=== PATIENT | male | born 1960 | race Caucasian/White ===

== ENCOUNTER 2018-11-05 18:34 | Emergency (ER) | payer SELFPAY ==
[~2018-11-05] VITALS: Ht 175.3 cm; Wt 92.0 kg
[2018-11-05] MEDS ORDERED: TETANUS, DIPHTHERIA, PERTUSSIS VAC/PF 0.5ML (>7YR OLD) IM ONE (19:30)
[2018-11-05] MEDS ORDERED: OLANZAPINE 10 MG/VIAL IM ONE (19:30)
[2018-11-05] MEDS ORDERED: LORAZEPAM 2MG/ML CPJ IM ONE ×2 (19:30→21:00)
[2018-11-05] MEDS ORDERED: LIDOCAINE 1%/EPI 1:100,000 10 ML VIAL IJ ONE (19:30)
[2018-11-05] MEDS ORDERED: BACITRACIN ZINC OINT UDPKT TOP ONE (19:30)
[2018-11-05] MEDS ORDERED: BACITRACIN 15GM TUBE TOP NR (19:45)
[2018-11-05] MEDS ORDERED: OLANZAPINE 10 MG/VIAL IM NR (19:45)
[2018-11-05] MEDS ORDERED: LIDOCAINE HCL/EPINEPHRINE 1%-EPI 1:100,000 20 ML VIAL INFIL NR (20:15)
[2018-11-05] MEDS ORDERED: LORAZEPAM 2MG/ML CPJ IM NR (21:45)
[2018-11-06 01:28] VITALS: BP 132/80
== END 2018-11-05 23:50 | disposition home or self-care (01) ==
LOC: ER 18:34
DX: S01.81XA Laceration without foreign body of other part of head, initial encounter (principal); Z02.89 Encounter for other administrative examinations; Y04.0XXA Assault by unarmed brawl or fight, initial encounter; Y93.89 Activity, other specified; Y92.512 Supermarket, store or market as the place of occurrence of the external cause; Y99.8 Other external cause status
CPT/HCPCS: 12011; 70486; 90715; 96372; 99284; J2060; J3490; Z7610

== ENCOUNTER 2019-05-06 12:28 | Inpatient (IN) | payer MEDICAID, OTHER ==
[~2019-05-06] VITALS: Ht 167.6 cm; Wt 82.1 kg
[2019-05-06] MEDS ORDERED: IBUP-2030 PO (12:51)
[2019-05-06] MEDS ORDERED: MORPHINE SULFATE 4 MG/ML CPJ (NOT FOR IM USE) IV STA (16:19)
[2019-05-06] MEDS ORDERED: KETOROLAC 30MG/ML VIAL IV STA (16:19)
[2019-05-06] MEDS ORDERED: SODIUM CHLORIDE 0.9% 1000ML BAG (SEPSIS BOLUS) IV ONE (16:30)
[2019-05-06] MEDS ORDERED: PIPERACILLIN/TAZ 3.375G PREMIX 50 ML IV ONE (16:30)
[2019-05-06] MEDS ORDERED: AZITHROMYCIN 500 MG in DEXT 5% WATER 250 ML IV ONE (16:30)
[2019-05-06 17:28] LABS: HEMATOCRIT. 41.5 % (42.0-52.0); MEAN CORPUSCULAR HEMOGLOBIN 31.2 pg (28.0-32.0); MEAN PLATELET VOLUME 7.5 fl (7.4-10.4); PLATELET 412 x1000/uL (130-400); RED BLOOD CELL COUNT 4.51 mill/uL (4.7-6.1); RED CELL DISTRIBUTION WIDTH 13.4 % (11.6-14.6)
[2019-05-06 17:32] LABS: CLARITY URINE CLEAR (CLEAR); COLOR URINE YELLOW (YELLOW); KETONES URINE NEGATIVE (NEGATIVE); LEUKOCYTE ESTERASE URINE NEGATIVE (NEGATIVE); NITRITE URINE NEGATIVE (NEGATIVE); OCCULT BLOOD URINE NEGATIVE (NEGATIVE); PH URINE 5.5 (4.5-8.0); PROTEIN URINE TRACE (NEGATIVE); SPECIFIC GRAVITY URINE 1.038 (1.005-1.030); UROBILINOGEN URINE 0.2 E.U./dL (0.2-1.0)
[2019-05-06 17:34] LABS: CHLORIDE 92 mEq/L (98-107)
[2019-05-06 17:35] LABS: PROTHROMBIN TIME 10.1 sec (9.6-11.0)
[2019-05-06 17:48] LABS: PLATELET ESTIMATE INCREASED
[2019-05-06] MEDS ORDERED: INSULIN LISPRO 100 UNITS/ML SUBCUT ONE (19:00)
[2019-05-06] MEDS ORDERED: MAGNESIUM/ALUMINUM HYDROXIDE/SIMETHICONE 30ML UDC PO PRN (19:30)
[2019-05-06] MEDS ORDERED: ONDANSETRON HCL 4MG/2ML INJ IV PRN (19:30)
[2019-05-06] MEDS ORDERED: CLONIDINE 0.1MG TABLET PO PRN (19:30)
[2019-05-06] MEDS ORDERED: GUAIFENESIN 200MG/10ML SUGAR FREE UDC PO PRN (19:30)
[2019-05-06] MEDS ORDERED: IPRATROPIUM/ALBUTEROL 0.5-3(2.5)MG/3ML NEB HHN PRN (19:30)
[2019-05-06] MEDS ORDERED: NA PHOS,M-B/NA PHOS,DI-BA ENEMA 118ML PR PRN (19:30)
[2019-05-06] MEDS ORDERED: PIPERACILLIN/TAZ 3.375G PREMIX 50 ML IV SCH (19:30)
[2019-05-06] MEDS ORDERED: DOCUSATE SODIUM 100MG CAPSULE PO PRN (19:30)
[2019-05-06] MEDS: MORPHINE SULFATE 2 MG/ML CPJ (NOT FOR IM USE) IV PRN ×3 (20:30→23:47)
[2019-05-06] MEDS: HYDROCODONE/ACETAMINOPHEN 10/325MG TABLET PO PRN ×2 (20:53→23:47)
[2019-05-06] MEDS ORDERED: VANCOMYCIN 1250MG in DEXTROSE 5% WATER 250ML IV NR (22:00)
[2019-05-06] MEDS ORDERED: DEXTROSE 50% WATER 50ML SYRINGE IV PRN (23:15)
[2019-05-06] MEDS ORDERED: INSULIN LISPRO 100 UNITS/ML SUBCUT NR (23:30)
[2019-05-06] MEDS: LORAZEPAM 2MG/ML CPJ IV PRN (23:50)
[2019-05-07] MEDS ORDERED: INSULIN LISPRO 100 UNITS/ML SUBCUT NR (01:15)
[2019-05-07] MEDS: MORPHINE SULFATE 2 MG/ML CPJ (NOT FOR IM USE) IV PRN (04:37)
[2019-05-07 05:43] LABS: BASOPHILS % 0.3 % (0.0-2.0); EOSINOPHILS % 1.5 % (0.0-5.0); HEMATOCRIT. 33.8 % (42.0-52.0); HEMOGLOBIN. 11.6 g/dL (14.0-18.0); LYMPHOCYTES % 7.5 % (20.0-50.0); MEAN CORPUSCULAR HEMOGLOBIN 31.4 pg (28.0-32.0); MEAN CORPUSCULAR VOLUME 91.7 fL (80.0-94.0); MEAN PLATELET VOLUME 7.3 fl (7.4-10.4); MONOCYTES % 8.8 % (2.0-8.0); NEUTROPHILS % 81.9 % (40.0-76.0); PLATELET 341 x1000/uL (130-400); RED BLOOD CELL COUNT 3.69 mill/uL (4.7-6.1); RED CELL DISTRIBUTION WIDTH 13.2 % (11.6-14.6)
[2019-05-07 05:58] LABS: CHLORIDE 98 mEq/L (98-107)
[2019-05-07 06:08] LABS: LDL CHOLESTEROL 55 mg/dL (5-100)
[2019-05-07 06:09] LABS: HDL CHOLESTEROL 31 mg/dL (40-59)
[2019-05-07 06:10] LABS: T4 FREE 1.35 ng/dL (0.76-1.46)
[2019-05-07] MEDS: HYDROCODONE/ACETAMINOPHEN 10/325MG TABLET PO PRN ×2 (08:17→21:04)
[2019-05-07] MEDS ORDERED: INSULIN LISPRO 100 UNITS/ML SUBCUT SCH (08:20)
[2019-05-07] MEDS ORDERED: BLOOD SUGAR DIAGNOSTIC STRIP TEST SCH (08:41)
[2019-05-07 10:00] VITALS: BP 139/86
[2019-05-07] MEDS ORDERED: DEXTROSE 50% WATER 50ML SYRINGE IV PRN (10:00)
[2019-05-07] MEDS: HYDROMORPHONE HCL/PF 2MG/ML CPJ IV PRN ×3 (10:33→18:06)
[2019-05-07 12:00] VITALS: BP 132/81
[2019-05-07] MEDS: BLOOD SUGAR DIAGNOSTIC STRIP TEST SCH ×3 (12:40→21:04)
[2019-05-07] MEDS: ENOXAPARIN 40MG/0.4ML SYR SUBCUT SCH (14:12)
[2019-05-07] MEDS: ASPIRIN 81MG EC TABLET PO SCH (14:12)
[2019-05-07] MEDS: LISINOPRIL 40MG TABLET PO SCH (14:12)
[2019-05-07] MEDS: PIPERACILLIN/TAZOBACTAM 3.375 G in DEXT 5% WATER 100 ML IV SCH ×2 (14:13→18:05)
[2019-05-07] MEDS: INSULIN LISPRO 100 UNITS/ML SUBCUT SCH ×3 (14:24→22:33)
[2019-05-07] MEDS: VANCOMYCIN 1 G PREMIX 200 ML IV SCH ×2 (15:30→21:03)
[2019-05-07 16:00] VITALS: BP 137/95
[2019-05-07] MEDS: METFORMIN HCL 500MG TABLET PO SCH (18:55)
[2019-05-07 20:00] VITALS: BP 101/66
[2019-05-07] MEDS: QUETIAPINE FUMARATE 50MG TABLET PO SCH (20:47)
[2019-05-07] MEDS: TRAZODONE HCL 50MG TABLET PO SCH (20:48)
[2019-05-07] MEDS: LORAZEPAM 2MG/ML CPJ IV PRN (20:48)
[2019-05-08] VITALS: BP 110/62
[2019-05-08] MEDS: HYDROMORPHONE HCL/PF 2MG/ML CPJ IV PRN ×5 (00:04→19:53)
[2019-05-08] MEDS: PIPERACILLIN/TAZOBACTAM 3.375 G in DEXT 5% WATER 100 ML IV SCH ×3 (02:12→17:40)
[2019-05-08 04:00] VITALS: BP 105/51
[2019-05-08] MEDS: HYDROCODONE/ACETAMINOPHEN 10/325MG TABLET PO PRN ×2 (04:19→12:47)
[2019-05-08] MEDS: VANCOMYCIN 1 G PREMIX 200 ML IV SCH ×3 (04:19→20:43)
[2019-05-08] MEDS: BLOOD SUGAR DIAGNOSTIC STRIP TEST SCH ×3 (07:42→17:40)
[2019-05-08 08:00] VITALS: BP 97/58
[2019-05-08] MEDS: LISINOPRIL 40MG TABLET PO SCH (09:00)
[2019-05-08] MEDS: METFORMIN HCL 500MG TABLET PO SCH ×2 (09:07→17:41)
[2019-05-08] MEDS: ASPIRIN 81MG EC TABLET PO SCH (09:07)
[2019-05-08] MEDS: ENOXAPARIN 40MG/0.4ML SYR SUBCUT SCH (09:07)
[2019-05-08] MEDS: INSULIN LISPRO 100 UNITS/ML SUBCUT SCH ×4 (09:14→21:14)
[2019-05-08 12:00] VITALS: BP 101/56
[2019-05-08 16:00] VITALS: BP 98/49
[2019-05-08 16:24] LABS: CHLORIDE 100 mEq/L (98-107)
[2019-05-08 16:37] LABS: VANCOMYCIN TROUGH < 0.8 ug/mL (5.0-10.0)
[2019-05-08 17:10] LABS: HEMATOCRIT. 36.1 % (42.0-52.0); HEMOGLOBIN. 12.2 g/dL (14.0-18.0); MEAN CORPUSCULAR HEMOGLOBIN 31.1 pg (28.0-32.0); MEAN PLATELET VOLUME 7.8 fl (7.4-10.4); PLATELET 424 x1000/uL (130-400); RED BLOOD CELL COUNT 3.93 mill/uL (4.7-6.1); RED CELL DISTRIBUTION WIDTH 13.3 % (11.6-14.6)
[2019-05-08 17:39] LABS: PLATELET ESTIMATE INCREASED
[2019-05-08] MEDS ORDERED: INSULIN LISPRO 100 UNITS/ML SUBCUT NR (18:30)
[2019-05-08 20:00] VITALS: BP 118/79
[2019-05-08] MEDS: TRAZODONE HCL 50MG TABLET PO SCH (20:42)
[2019-05-08] MEDS: QUETIAPINE FUMARATE 50MG TABLET PO SCH (20:42)
[2019-05-08] MEDS: LORAZEPAM 2MG/ML CPJ IV PRN (20:57)
[2019-05-09] VITALS: BP 90/43
[2019-05-09] MEDS: PIPERACILLIN/TAZOBACTAM 3.375 G in DEXT 5% WATER 100 ML IV SCH ×3 (02:32→17:33)
[2019-05-09] MEDS: LORAZEPAM 2MG/ML CPJ IV PRN ×4 (03:10→20:09)
[2019-05-09 04:00] VITALS: BP 92/46
[2019-05-09] MEDS: BLOOD SUGAR DIAGNOSTIC STRIP TEST SCH ×5 (05:19→20:33)
[2019-05-09 08:00] VITALS: BP 114/55
[2019-05-09] MEDS: ENOXAPARIN 40MG/0.4ML SYR SUBCUT SCH (08:39)
[2019-05-09] MEDS: METFORMIN HCL 500MG TABLET PO SCH ×2 (08:39→19:29)
[2019-05-09] MEDS: ASPIRIN 81MG EC TABLET PO SCH (08:39)
[2019-05-09] MEDS: INSULIN LISPRO 100 UNITS/ML SUBCUT SCH ×4 (08:40→20:25)
[2019-05-09] MEDS: HYDROMORPHONE HCL/PF 2MG/ML CPJ IV PRN ×4 (08:41→21:14)
[2019-05-09] MEDS: LISINOPRIL 40MG TABLET PO SCH (08:55)
[2019-05-09 12:00] VITALS: BP 116/58
[2019-05-09 14:33] VITALS: BP 114/72
[2019-05-09 20:00] VITALS: BP 119/81
[2019-05-09] MEDS: TRAZODONE HCL 50MG TABLET PO SCH (20:08)
[2019-05-09] MEDS: QUETIAPINE FUMARATE 50MG TABLET PO SCH (20:08)
[2019-05-09] MEDS: CLINDAMYCIN 600MG PREMIX 50 ML IV SCH (20:08)
[2019-05-10] VITALS: BP 122/81
[2019-05-10] MEDS: PIPERACILLIN/TAZOBACTAM 3.375 G in DEXT 5% WATER 100 ML IV SCH (03:08)
[2019-05-10] MEDS: HYDROMORPHONE HCL/PF 2MG/ML CPJ IV PRN ×5 (03:26→21:06)
[2019-05-10 04:00] VITALS: BP 116/55
[2019-05-10] MEDS: CLINDAMYCIN 600MG PREMIX 50 ML IV SCH ×3 (04:58→18:13)
[2019-05-10 06:52] LABS: BASOPHILS % 0.5 % (0.0-2.0); EOSINOPHILS % 2.6 % (0.0-5.0); HEMATOCRIT. 29.2 % (42.0-52.0); HEMOGLOBIN. 9.8 g/dL (14.0-18.0); LYMPHOCYTES % 10.3 % (20.0-50.0); MEAN CORPUSCULAR HEMOGLOBIN 30.8 pg (28.0-32.0); MEAN CORPUSCULAR VOLUME 91.4 fL (80.0-94.0); MEAN PLATELET VOLUME 7.7 fl (7.4-10.4); NEUTROPHILS % 78.6 % (40.0-76.0); PLATELET 406 x1000/uL (130-400); RED BLOOD CELL COUNT 3.19 mill/uL (4.7-6.1); RED CELL DISTRIBUTION WIDTH 13.2 % (11.6-14.6)
[2019-05-10] MEDS: BLOOD SUGAR DIAGNOSTIC STRIP TEST SCH ×4 (07:03→21:05)
[2019-05-10] MEDS: METFORMIN HCL 500MG TABLET PO SCH ×2 (08:27→17:15)
[2019-05-10 08:30] VITALS: BP 104/50
[2019-05-10] MEDS: LISINOPRIL 40MG TABLET PO SCH (08:30)
[2019-05-10] MEDS: ENOXAPARIN 40MG/0.4ML SYR SUBCUT SCH (08:31)
[2019-05-10] MEDS: LORAZEPAM 2MG/ML CPJ IV PRN ×3 (08:31→17:11)
[2019-05-10] MEDS: ASPIRIN 81MG EC TABLET PO SCH (08:31)
[2019-05-10] MEDS: INSULIN LISPRO 100 UNITS/ML SUBCUT SCH ×4 (08:33→21:00)
[2019-05-10] MEDS: PIPERACILLIN/TAZOBACTAM 2.25 G in DEXTROSE 5% WATER 50 ML IV SCH ×2 (11:20→21:04)
[2019-05-10 12:00] VITALS: BP 108/51
[2019-05-10 16:00] VITALS: BP 108/58
[2019-05-10 20:00] VITALS: BP 144/77
[2019-05-10] MEDS: TRAZODONE HCL 50MG TABLET PO SCH (21:04)
[2019-05-10] MEDS: QUETIAPINE FUMARATE 50MG TABLET PO SCH (21:05)
[2019-05-11] VITALS: BP 138/79
[2019-05-11] MEDS: CLINDAMYCIN 600MG PREMIX 50 ML IV SCH ×3 (03:12→19:37)
[2019-05-11 04:00] VITALS: BP 139/75
[2019-05-11] MEDS: PIPERACILLIN/TAZOBACTAM 2.25 G in DEXTROSE 5% WATER 50 ML IV SCH ×3 (04:08→20:54)
[2019-05-11 06:18] LABS: HEMATOCRIT. 29.2 % (42.0-52.0); HEMOGLOBIN. 9.9 g/dL (14.0-18.0); MEAN CORPUSCULAR VOLUME 91.2 fL (80.0-94.0); MEAN PLATELET VOLUME 7.4 fl (7.4-10.4); PLATELET 423 x1000/uL (130-400); RED CELL DISTRIBUTION WIDTH 13.4 % (11.6-14.6)
[2019-05-11] MEDS: BLOOD SUGAR DIAGNOSTIC STRIP TEST SCH ×4 (07:40→20:10)
[2019-05-11 08:00] VITALS: BP 132/73
[2019-05-11] MEDS: INSULIN LISPRO 100 UNITS/ML SUBCUT SCH ×4 (08:10→21:07)
[2019-05-11] MEDS: HYDROMORPHONE HCL/PF 2MG/ML CPJ IV PRN ×4 (08:13→21:45)
[2019-05-11] MEDS: SODIUM CHLORIDE 0.9% 1,000 ML IV SCH ×2 (08:44→19:37)
[2019-05-11] MEDS: ENOXAPARIN 30MG/0.3ML SYR SUBCUT SCH (09:00)
[2019-05-11] MEDS: ASPIRIN 81MG EC TABLET PO SCH (09:00)
[2019-05-11] MEDS: LORAZEPAM 2MG/ML CPJ IV PRN ×2 (10:49→21:30)
[2019-05-11 12:00] VITALS: BP 135/72
[2019-05-11] MEDS ORDERED: SODIUM BICARBONATE 4% (2.4MEQ) 5ML VIAL IV ONE (12:36)
[2019-05-11] MEDS ORDERED: LIDOCAINE HCL 1% 20ML VIAL (Pyxis) INJ ONE (12:36)
[2019-05-11 16:00] VITALS: BP 143/77
[2019-05-11 16:57] LABS: *AMPHETAMINES SCREEN URINE NEGATIVE (NEGATIVE); *BARBITURATES SCREEN URINE NEGATIVE (NEGATIVE); *BENZODIAZEPINES SCREEN URINE NEGATIVE (NEGATIVE); *COCAINE SCREEN URINE NEGATIVE (NEGATIVE); METHADONE URINE SCREEN NEGATIVE (NEGATIVE); OPIATES URINE SCREEN PRESUMTIVE POSITIVE (NEGATIVE); PHENCYCLIDINE URINE SCREEN NEGATIVE (NEGATIVE)
[2019-05-11 16:58] LABS: CANNABINOID URINE SCREEN NEGATIVE (NEGATIVE)
[2019-05-11 18:41] LABS: HEPATITIS B SURFACE ANTIGEN NEGATIVE
[2019-05-11 19:11] LABS: HEPATITIS A AB IGM NEGATIVE (NEGATIVE)
[2019-05-11] MEDS: QUETIAPINE FUMARATE 50MG TABLET PO SCH (20:54)
[2019-05-11] MEDS: TRAZODONE HCL 50MG TABLET PO SCH (20:55)
[2019-05-12] MEDS: SODIUM CHLORIDE 0.9% 1,000 ML IV SCH ×2 (03:05→22:51)
[2019-05-12] MEDS: CLINDAMYCIN 600MG PREMIX 50 ML IV SCH ×3 (03:05→18:43)
[2019-05-12] MEDS: HYDROMORPHONE HCL/PF 2MG/ML CPJ IV PRN ×4 (03:16→20:39)
[2019-05-12 04:00] VITALS: BP 144/82
[2019-05-12] MEDS: PIPERACILLIN/TAZOBACTAM 2.25 G in DEXTROSE 5% WATER 50 ML IV SCH ×3 (04:47→20:37)
[2019-05-12] MEDS: LORAZEPAM 2MG/ML CPJ IV PRN ×2 (04:53→13:09)
[2019-05-12] MEDS: DIPHENHYDRAMINE 50MG/ML VIAL IV PRN (06:23)
[2019-05-12] MEDS: BLOOD SUGAR DIAGNOSTIC STRIP TEST SCH ×4 (07:40→20:54)
[2019-05-12 07:52] LABS: PLATELET ESTIMATE SLIGHTL
[2019-05-12 08:00] VITALS: BP 139/76
[2019-05-12] MEDS: INSULIN LISPRO 100 UNITS/ML SUBCUT SCH ×4 (08:10→21:00)
[2019-05-12] MEDS: ASPIRIN 81MG EC TABLET PO SCH (09:00)
[2019-05-12] MEDS: ENOXAPARIN 30MG/0.3ML SYR SUBCUT SCH (09:00)
[2019-05-12] MEDS ORDERED: LIDOCAINE HCL 1% 20ML VIAL (Pyxis) INJ ONE (09:26)
[2019-05-12 12:00] VITALS: BP 138/78
[2019-05-12 12:39] LABS: PARTIAL THROMBOPLASTIN TIME 28.5 sec (23.4-31.0); PROTHROMBIN TIME 10.6 sec (9.6-11.0)
[2019-05-12 16:00] VITALS: BP 128/79
[2019-05-12 20:00] VITALS: BP 152/68
[2019-05-12] MEDS: QUETIAPINE FUMARATE 50MG TABLET PO SCH (20:37)
[2019-05-12] MEDS: TRAZODONE HCL 50MG TABLET PO SCH (20:37)
[2019-05-13 00:02] VITALS: BP_SYST 157; BP_DIAS 57; BP_DIAS 71
[2019-05-13] MEDS: LORAZEPAM 2MG/ML CPJ IV PRN ×3 (00:24→11:51)
[2019-05-13] MEDS: SODIUM CHLORIDE 0.9% 1,000 ML IV SCH ×3 (00:30→22:51)
[2019-05-13] MEDS: PIPERACILLIN/TAZOBACTAM 2.25 G in DEXTROSE 5% WATER 50 ML IV SCH ×3 (04:01→20:14)
[2019-05-13] MEDS: HYDROMORPHONE HCL/PF 2MG/ML CPJ IV PRN ×4 (04:02→20:16)
[2019-05-13] MEDS: CLINDAMYCIN 600MG PREMIX 50 ML IV SCH ×3 (04:08→17:59)
[2019-05-13] MEDS: BLOOD SUGAR DIAGNOSTIC STRIP TEST SCH ×4 (05:55→20:38)
[2019-05-13 08:00] VITALS: BP 134/70
[2019-05-13] MEDS: INSULIN LISPRO 100 UNITS/ML SUBCUT SCH ×4 (08:10→20:42)
[2019-05-13] MEDS: ASPIRIN 81MG EC TABLET PO SCH (09:00)
[2019-05-13] MEDS: ENOXAPARIN 30MG/0.3ML SYR SUBCUT SCH (09:00)
[2019-05-13 09:37] LABS: HEMATOCRIT. 30.2 % (42.0-52.0); HEMOGLOBIN. 10.3 g/dL (14.0-18.0); MEAN CORPUSCULAR HEMOGLOBIN 31.1 pg (28.0-32.0); MEAN CORPUSCULAR VOLUME 91.5 fL (80.0-94.0); MEAN PLATELET VOLUME 7.3 fl (7.4-10.4); PLATELET 526 x1000/uL (130-400); RED CELL DISTRIBUTION WIDTH 13.4 % (11.6-14.6)
[2019-05-13 12:00] VITALS: BP 128/69
[2019-05-13] MEDS ORDERED: SODIUM POLYSTYRENE SULFONATE 15 G/60 ML BOT PO NR (12:15)
[2019-05-13 13:51] LABS: PLATELET ESTIMATE INCREASED
[2019-05-13 16:00] VITALS: BP 165/87
[2019-05-13 20:00] VITALS: BP 135/60
[2019-05-13] MEDS: QUETIAPINE FUMARATE 50MG TABLET PO SCH (20:14)
[2019-05-13] MEDS: TRAZODONE HCL 50MG TABLET PO SCH (20:14)
[2019-05-14] MEDS: CLINDAMYCIN 600MG PREMIX 50 ML IV SCH ×3 (02:53→18:11)
[2019-05-14 04:00] VITALS: BP 158/84
[2019-05-14] MEDS: HYDROMORPHONE HCL/PF 2MG/ML CPJ IV PRN ×4 (05:03→22:36)
[2019-05-14] MEDS: BLOOD SUGAR DIAGNOSTIC STRIP TEST SCH ×4 (06:48→20:17)
[2019-05-14] MEDS: INSULIN LISPRO 100 UNITS/ML SUBCUT SCH ×4 (06:49→20:30)
[2019-05-14 06:57] LABS: HEMATOCRIT. 27.8 % (42.0-52.0); HEMOGLOBIN. 9.3 g/dL (14.0-18.0); MEAN CORPUSCULAR HEMOGLOBIN 30.6 pg (28.0-32.0); MEAN CORPUSCULAR VOLUME 91.2 fL (80.0-94.0); MEAN PLATELET VOLUME 7.4 fl (7.4-10.4); PLATELET 523 x1000/uL (130-400); RED BLOOD CELL COUNT 3.05 mill/uL (4.7-6.1); RED CELL DISTRIBUTION WIDTH 13.3 % (11.6-14.6)
[2019-05-14 07:02] LABS: PARTIAL THROMBOPLASTIN TIME 31.4 sec (23.4-31.0); PROTHROMBIN TIME 10.7 sec (9.6-11.0)
[2019-05-14 08:00] VITALS: BP 139/68
[2019-05-14] MEDS: ASPIRIN 81MG EC TABLET PO SCH (08:24)
[2019-05-14] MEDS: ENOXAPARIN 30MG/0.3ML SYR SUBCUT SCH (08:24)
[2019-05-14 12:00] VITALS: BP 125/60
[2019-05-14 13:51] LABS: PLATELET ESTIMATE INCREASED
[2019-05-14] MEDS: DIPHENHYDRAMINE 50MG/ML VIAL IV PRN ×2 (14:20→20:17)
[2019-05-14 16:00] VITALS: BP 164/82
[2019-05-14] MEDS: SODIUM CHLORIDE 0.9% 1,000 ML IV SCH (17:38)
[2019-05-14 20:00] VITALS: BP 122/86
[2019-05-14] MEDS: QUETIAPINE FUMARATE 50MG TABLET PO SCH (20:17)
[2019-05-14] MEDS: TRAZODONE HCL 50MG TABLET PO SCH (20:17)
[2019-05-15] VITALS: BP 120/81
[2019-05-15] MEDS: DIPHENHYDRAMINE 50MG/ML VIAL IV PRN (00:39)
[2019-05-15] MEDS: CLINDAMYCIN 600MG PREMIX 50 ML IV SCH ×2 (02:48→13:36)
[2019-05-15] MEDS: HYDROMORPHONE HCL/PF 2MG/ML CPJ IV PRN ×4 (03:30→13:55)
[2019-05-15 04:00] VITALS: BP 125/84
[2019-05-15 07:37] LABS: HEMOGLOBIN. 10.3 g/dL (14.0-18.0); MEAN CORPUSCULAR HEMOGLOBIN 31.4 pg (28.0-32.0); MEAN CORPUSCULAR VOLUME 91.9 fL (80.0-94.0); MEAN PLATELET VOLUME 7.2 fl (7.4-10.4); PLATELET 639 x1000/uL (130-400); RED BLOOD CELL COUNT 3.27 mill/uL (4.7-6.1); RED CELL DISTRIBUTION WIDTH 13.4 % (11.6-14.6)
[2019-05-15] MEDS: BLOOD SUGAR DIAGNOSTIC STRIP TEST SCH ×3 (07:40→21:00)
[2019-05-15 08:00] VITALS: BP 169/90
[2019-05-15] MEDS: INSULIN LISPRO 100 UNITS/ML SUBCUT SCH ×3 (08:10→21:00)
[2019-05-15] MEDS: ENOXAPARIN 30MG/0.3ML SYR SUBCUT SCH (09:00)
[2019-05-15] MEDS ORDERED: LORAZEPAM 1MG TABLET PO SCH (09:15)
[2019-05-15 10:11] LABS: PLATELET ESTIMATE INCREAS
[2019-05-15 15:09] LABS: ANTI-NUCLEAR ANTIBODIES DIRECT Negative (Negative)
[2019-05-15 16:00] VITALS: BP 160/91
[2019-05-15] MEDS: LORAZEPAM 2MG/ML CPJ IV PRN (16:10)
[2019-05-15 20:00] VITALS: BP 153/88
[2019-05-15] MEDS: TRAZODONE HCL 50MG TABLET PO SCH (20:22)
[2019-05-15] MEDS: QUETIAPINE FUMARATE 50MG TABLET PO SCH (20:22)
[2019-05-16] VITALS: BP 133/66
[2019-05-16] MEDS: LORAZEPAM 2MG/ML CPJ IV PRN ×2 (01:13→16:08)
[2019-05-16] MEDS: CLINDAMYCIN 600MG PREMIX 50 ML IV SCH ×3 (03:00→21:13)
[2019-05-16 04:00] VITALS: BP 136/70
[2019-05-16] MEDS: HYDROMORPHONE HCL/PF 2MG/ML CPJ IV PRN ×3 (06:22→21:11)
[2019-05-16 06:50] LABS: BASOPHILS % 0.9 % (0.0-2.0); EOSINOPHILS % 2.9 % (0.0-5.0); HEMATOCRIT. 29.5 % (42.0-52.0); HEMOGLOBIN. 9.9 g/dL (14.0-18.0); LYMPHOCYTES % 9.7 % (20.0-50.0); MEAN CORPUSCULAR HEMOGLOBIN 30.6 pg (28.0-32.0); MEAN PLATELET VOLUME 7.1 fl (7.4-10.4); MONOCYTES % 9.4 % (2.0-8.0); NEUTROPHILS % 77.1 % (40.0-76.0); PLATELET 689 x1000/uL (130-400); RED BLOOD CELL COUNT 3.24 mill/uL (4.7-6.1); RED CELL DISTRIBUTION WIDTH 13.8 % (11.6-14.6)
[2019-05-16] MEDS: BLOOD SUGAR DIAGNOSTIC STRIP TEST SCH ×3 (07:40→21:11)
[2019-05-16 08:00] VITALS: BP 157/80
[2019-05-16] MEDS: INSULIN LISPRO 100 UNITS/ML SUBCUT SCH ×3 (08:10→21:14)
[2019-05-16] MEDS: ENOXAPARIN 30MG/0.3ML SYR SUBCUT SCH (09:00)
[2019-05-16 09:30] LABS: CLARITY URINE CLEAR (CLEAR); COLOR URINE YELLOW (YELLOW); KETONES URINE NEGATIVE (NEGATIVE); LEUKOCYTE ESTERASE URINE NEGATIVE (NEGATIVE); NITRITE URINE NEGATIVE (NEGATIVE); OCCULT BLOOD URINE TRACE (NEGATIVE); PROTEIN URINE 1+ (NEGATIVE); SPECIFIC GRAVITY URINE 1.006 (1.005-1.030); UROBILINOGEN URINE 0.2 E.U./dL (0.2-1.0)
[2019-05-16 12:00] VITALS: BP 142/79
[2019-05-16 16:00] VITALS: BP 157/82
[2019-05-16] MEDS: TRAZODONE HCL 50MG TABLET PO SCH (21:12)
[2019-05-16] MEDS: QUETIAPINE FUMARATE 50MG TABLET PO SCH (21:12)
[2019-05-16] MEDS: DIPHENHYDRAMINE 50MG/ML VIAL IV PRN (21:12)
[2019-05-17] VITALS: BP 149/78
[2019-05-17 04:00] VITALS: BP 145/87
[2019-05-17] MEDS: LORAZEPAM 2MG/ML CPJ IV PRN (05:47)
[2019-05-17 06:15] LABS: EOSINOPHILS % 4.5 % (0.0-5.0); HEMATOCRIT. 29.6 % (42.0-52.0); LYMPHOCYTES % 14.4 % (20.0-50.0); MEAN CORPUSCULAR HEMOGLOBIN 30.9 pg (28.0-32.0); MEAN CORPUSCULAR VOLUME 91.2 fL (80.0-94.0); MEAN PLATELET VOLUME 7.1 fl (7.4-10.4); MONOCYTES % 9.1 % (2.0-8.0); PLATELET 689 x1000/uL (130-400); RED BLOOD CELL COUNT 3.25 mill/uL (4.7-6.1); RED CELL DISTRIBUTION WIDTH 13.7 % (11.6-14.6)
[2019-05-17] MEDS: BLOOD SUGAR DIAGNOSTIC STRIP TEST SCH ×4 (07:40→20:46)
[2019-05-17 08:00] VITALS: BP 128/83
[2019-05-17] MEDS: INSULIN LISPRO 100 UNITS/ML SUBCUT SCH ×4 (08:10→20:46)
[2019-05-17] MEDS: ENOXAPARIN 30MG/0.3ML SYR SUBCUT SCH (09:00)
[2019-05-17] MEDS: HYDROMORPHONE HCL/PF 2MG/ML CPJ IV PRN ×3 (11:38→21:47)
[2019-05-17 12:00] VITALS: BP 158/88
[2019-05-17] MEDS: DIPHENHYDRAMINE 50MG/ML VIAL IV PRN ×2 (16:12→20:46)
[2019-05-17 16:15] VITALS: BP 142/67
[2019-05-17] MEDS: TRAZODONE HCL 50MG TABLET PO SCH (20:46)
[2019-05-17] MEDS: QUETIAPINE FUMARATE 50MG TABLET PO SCH (20:46)
[2019-05-18] VITALS (23 sets, daily range): BP systolic 122–163; BP diastolic 62–89
[2019-05-18] MEDS: LORAZEPAM 2MG/ML CPJ IV PRN ×3 (00:44→22:08)
[2019-05-18 06:25] LABS: PARTIAL THROMBOPLASTIN TIME 30.1 sec (23.4-31.0); PROTHROMBIN TIME 10.7 sec (9.6-11.0)
[2019-05-18] MEDS: BLOOD SUGAR DIAGNOSTIC STRIP TEST SCH ×4 (06:25→21:00)
[2019-05-18] MEDS: INSULIN LISPRO 100 UNITS/ML SUBCUT SCH ×4 (08:08→21:00)
[2019-05-18] MEDS ORDERED: FENTANYL CITRATE/PF 50MCG/ML 2ML VIAL ONE (08:44)
[2019-05-18] MEDS ORDERED: LIDOCAINE HCL 1% 20ML VIAL (Pyxis) INJ ONE ×3 (08:44→08:47)
[2019-05-18] MEDS ORDERED: SODIUM BICARBONATE 4% (2.4MEQ) 5ML VIAL IV ONE ×3 (08:44→08:47)
[2019-05-18] MEDS: ENOXAPARIN 30MG/0.3ML SYR SUBCUT SCH (09:00)
[2019-05-18] MEDS ORDERED: CEFAZOLIN 1000MG PREMIX 50 ML IV ONE ×2 (09:43→10:45)
[2019-05-18] MEDS ORDERED: FENTANYL CITRATE/PF 50MCG/ML 2ML VIAL IV ONE (10:15)
[2019-05-18] MEDS: HYDROMORPHONE HCL/PF 2MG/ML CPJ IV PRN ×2 (10:58→17:07)
[2019-05-18 14:58] LABS: HEMATOCRIT 28.4 % (42.0-52.0); HEMOGLOBIN 9.8 g/dL (14.0-18.0)
[2019-05-18] MEDS: QUETIAPINE FUMARATE 50MG TABLET PO SCH (22:24)
[2019-05-18] MEDS: TRAZODONE HCL 50MG TABLET PO SCH (22:24)
[2019-05-19] VITALS: BP 146/77
[2019-05-19 04:00] VITALS: BP 138/59
[2019-05-19] MEDS: HYDROMORPHONE HCL/PF 2MG/ML CPJ IV PRN ×2 (05:14→11:04)
[2019-05-19] MEDS: ACETAMINOPHEN 325MG TABLET PO PRN ×3 (05:32→19:49)
[2019-05-19] MEDS: BLOOD SUGAR DIAGNOSTIC STRIP TEST SCH ×4 (07:08→20:13)
[2019-05-19] MEDS: DIPHENHYDRAMINE 50MG/ML VIAL IV PRN (07:29)
[2019-05-19 07:36] LABS: HEMATOCRIT. 28.5 % (42.0-52.0); HEMOGLOBIN. 9.5 g/dL (14.0-18.0); MEAN CORPUSCULAR VOLUME 90.1 fL (80.0-94.0); MEAN PLATELET VOLUME 7.4 fl (7.4-10.4); PLATELET 531 x1000/uL (130-400); RED BLOOD CELL COUNT 3.17 mill/uL (4.7-6.1); RED CELL DISTRIBUTION WIDTH 13.9 % (11.6-14.6)
[2019-05-19 08:00] VITALS: BP 132/64
[2019-05-19] MEDS: INSULIN LISPRO 100 UNITS/ML SUBCUT SCH ×4 (08:05→20:27)
[2019-05-19] MEDS: ENOXAPARIN 30MG/0.3ML SYR SUBCUT SCH (09:20)
[2019-05-19] MEDS ORDERED: DIPHENHYDRAMINE 12.5MG/5ML UDC PO SCH (11:45)
[2019-05-19 12:37] LABS: PLATELET ESTIMATE INCREASED
[2019-05-19 15:48] VITALS: BP 132/81
[2019-05-19 20:00] VITALS: BP 145/67
[2019-05-19] MEDS: METRONIDAZOLE 500 MG PREMIX 100 ML IV SCH (20:09)
[2019-05-19] MEDS: QUETIAPINE FUMARATE 50MG TABLET PO SCH (20:10)
[2019-05-19] MEDS: TRAZODONE HCL 50MG TABLET PO SCH (20:10)
[2019-05-19] MEDS ORDERED: LEVOFLOXACIN 500MG PREMIX 100 ML IV NR (21:00)
[2019-05-20] VITALS: BP 128/67
[2019-05-20] MEDS: HYDROMORPHONE HCL/PF 2MG/ML CPJ IV PRN ×4 (00:10→21:41)
[2019-05-20 04:00] VITALS: BP 130/69
[2019-05-20 06:11] LABS: HEMATOCRIT. 26.6 % (42.0-52.0); HEMOGLOBIN. 9.2 g/dL (14.0-18.0); MEAN CORPUSCULAR HEMOGLOBIN 30.9 pg (28.0-32.0); MEAN PLATELET VOLUME 7.4 fl (7.4-10.4); PLATELET 425 x1000/uL (130-400); RED BLOOD CELL COUNT 2.98 mill/uL (4.7-6.1)
[2019-05-20] MEDS: BLOOD SUGAR DIAGNOSTIC STRIP TEST SCH ×4 (06:41→21:40)
[2019-05-20] MEDS: ACETAMINOPHEN 325MG TABLET PO PRN ×2 (07:05→20:05)
[2019-05-20] MEDS: DIPHENHYDRAMINE 50MG/ML VIAL IV PRN ×2 (07:05→20:05)
[2019-05-20 08:00] VITALS: BP 141/78
[2019-05-20] MEDS: INSULIN LISPRO 100 UNITS/ML SUBCUT SCH ×4 (08:02→21:40)
[2019-05-20] MEDS: METRONIDAZOLE 500 MG PREMIX 100 ML IV SCH ×2 (08:03→19:49)
[2019-05-20] MEDS: ENOXAPARIN 30MG/0.3ML SYR SUBCUT SCH (08:03)
[2019-05-20 12:00] VITALS: BP 133/77
[2019-05-20 12:55] LABS: PLATELET ESTIMATE INCREASED
[2019-05-20 16:00] VITALS: BP 149/78
[2019-05-20 20:00] VITALS: BP 145/83
[2019-05-20] MEDS: TRAZODONE HCL 50MG TABLET PO SCH (20:05)
[2019-05-20] MEDS: QUETIAPINE FUMARATE 50MG TABLET PO SCH (20:05)
[2019-05-21] VITALS: BP 140/80
[2019-05-21] MEDS: HYDROMORPHONE HCL/PF 2MG/ML CPJ IV PRN ×3 (03:59→20:47)
[2019-05-21 04:00] VITALS: BP 148/82
[2019-05-21 06:20] LABS: BASOPHILS % 0.5 % (0.0-2.0); EOSINOPHILS % 7.7 % (0.0-5.0); HEMATOCRIT. 24.8 % (42.0-52.0); HEMOGLOBIN. 8.7 g/dL (14.0-18.0); LYMPHOCYTES % 7.8 % (20.0-50.0); MEAN CORPUSCULAR HEMOGLOBIN 31.5 pg (28.0-32.0); MEAN CORPUSCULAR VOLUME 89.7 fL (80.0-94.0); MONOCYTES % 10.5 % (2.0-8.0); NEUTROPHILS % 73.5 % (40.0-76.0); PLATELET 405 x1000/uL (130-400); RED BLOOD CELL COUNT 2.77 mill/uL (4.7-6.1); RED CELL DISTRIBUTION WIDTH 13.4 % (11.6-14.6)
[2019-05-21] MEDS: BLOOD SUGAR DIAGNOSTIC STRIP TEST SCH ×4 (06:28→20:31)
[2019-05-21 08:00] VITALS: BP 144/77
[2019-05-21] MEDS: INSULIN LISPRO 100 UNITS/ML SUBCUT SCH ×4 (08:10→20:50)
[2019-05-21] MEDS: METRONIDAZOLE 500 MG PREMIX 100 ML IV SCH ×2 (08:16→20:32)
[2019-05-21] MEDS: ACETAMINOPHEN 325MG TABLET PO PRN ×2 (08:16→17:47)
[2019-05-21] MEDS: DIPHENHYDRAMINE 50MG/ML VIAL IV PRN (08:16)
[2019-05-21] MEDS: ENOXAPARIN 30MG/0.3ML SYR SUBCUT SCH (08:17)
[2019-05-21] MEDS ORDERED: HEPARIN SODIUM 1,000 UNIT/1ML VIAL IV NR (11:15)
[2019-05-21 12:00] VITALS: BP 149/83
[2019-05-21] MEDS: LEVOFLOXACIN 250MG PREMIX 50 ML IV SCH (14:05)
[2019-05-21] MEDS: LORAZEPAM 2MG/ML CPJ IV PRN (15:16)
[2019-05-21 16:00] VITALS: BP 151/83
[2019-05-21] MEDS: PREDNISONE 20MG TABLET PO SCH (17:35)
[2019-05-21 20:00] VITALS: BP 151/79
[2019-05-21] MEDS: QUETIAPINE FUMARATE 50MG TABLET PO SCH (20:31)
[2019-05-21] MEDS: TRAZODONE HCL 50MG TABLET PO SCH (20:31)
[2019-05-22] VITALS: BP 114/65
[2019-05-22 04:00] VITALS: BP 134/74
[2019-05-22] MEDS: LORAZEPAM 2MG/ML CPJ IV PRN ×2 (04:44→16:11)
[2019-05-22 06:09] LABS: BASOPHILS % 0.8 % (0.0-2.0); EOSINOPHILS % 1.1 % (0.0-5.0); HEMATOCRIT. 27.2 % (42.0-52.0); HEMOGLOBIN. 9.5 g/dL (14.0-18.0); LYMPHOCYTES % 13.5 % (20.0-50.0); MEAN CORPUSCULAR HEMOGLOBIN 31.3 pg (28.0-32.0); MEAN CORPUSCULAR VOLUME 89.9 fL (80.0-94.0); MEAN PLATELET VOLUME 7.7 fl (7.4-10.4); MONOCYTES % 8.1 % (2.0-8.0); NEUTROPHILS % 76.5 % (40.0-76.0); PLATELET 453 x1000/uL (130-400); RED BLOOD CELL COUNT 3.02 mill/uL (4.7-6.1); RED CELL DISTRIBUTION WIDTH 13.3 % (11.6-14.6)
[2019-05-22] MEDS: BLOOD SUGAR DIAGNOSTIC STRIP TEST SCH ×4 (06:53→21:38)
[2019-05-22] MEDS: METRONIDAZOLE 500 MG PREMIX 100 ML IV SCH ×2 (09:04→21:56)
[2019-05-22] MEDS: ACETAMINOPHEN 325MG TABLET PO PRN ×2 (09:04→18:13)
[2019-05-22] MEDS: DIPHENHYDRAMINE 50MG/ML VIAL IV PRN ×2 (09:04→18:13)
[2019-05-22] MEDS: INSULIN LISPRO 100 UNITS/ML SUBCUT SCH ×4 (09:05→21:38)
[2019-05-22] MEDS: PREDNISONE 20MG TABLET PO SCH (09:06)
[2019-05-22] MEDS: ENOXAPARIN 30MG/0.3ML SYR SUBCUT SCH (09:07)
[2019-05-22] MEDS: HYDROMORPHONE HCL/PF 2MG/ML CPJ IV PRN ×2 (10:32→21:51)
[2019-05-22 12:00] VITALS: BP_SYST 114; BP_SYST 134; BP_DIAS 73; BP_DIAS 77
[2019-05-22 16:00] VITALS: BP 143/74
[2019-05-22 20:00] VITALS: BP 137/75
[2019-05-22] MEDS: TRAZODONE HCL 50MG TABLET PO SCH (20:17)
[2019-05-22] MEDS ORDERED: QUETIAPINE FUMARATE 50MG TABLET PO SCH (21:00)
[2019-05-23] VITALS: BP 124/70
[2019-05-23] MEDS: LORAZEPAM 2MG/ML CPJ IV PRN ×2 (01:39→08:14)
[2019-05-23 04:00] VITALS: BP 120/74
[2019-05-23] MEDS: HYDROMORPHONE HCL/PF 2MG/ML CPJ IV PRN (05:53)
[2019-05-23] MEDS: BLOOD SUGAR DIAGNOSTIC STRIP TEST SCH ×2 (07:20→12:20)
[2019-05-23 07:37] LABS: BASOPHILS % 0.9 % (0.0-2.0); EOSINOPHILS % 1.6 % (0.0-5.0); HEMOGLOBIN. 9.1 g/dL (14.0-18.0); LYMPHOCYTES % 10.9 % (20.0-50.0); MEAN CORPUSCULAR VOLUME 91.5 fL (80.0-94.0); MEAN PLATELET VOLUME 7.8 fl (7.4-10.4); MONOCYTES % 7.6 % (2.0-8.0); PLATELET 522 x1000/uL (130-400); RED BLOOD CELL COUNT 2.95 mill/uL (4.7-6.1); RED CELL DISTRIBUTION WIDTH 13.5 % (11.6-14.6)
[2019-05-23 08:00] VITALS: BP 139/74
[2019-05-23] MEDS: PREDNISONE 20MG TABLET PO SCH (08:13)
[2019-05-23] MEDS: ACETAMINOPHEN 325MG TABLET PO PRN (08:14)
[2019-05-23] MEDS: ENOXAPARIN 30MG/0.3ML SYR SUBCUT SCH (08:14)
[2019-05-23] MEDS: METRONIDAZOLE 500 MG PREMIX 100 ML IV SCH (08:15)
[2019-05-23] MEDS: INSULIN LISPRO 100 UNITS/ML SUBCUT SCH ×2 (08:28→14:07)
[2019-05-23] MEDS: LEVOFLOXACIN 250MG PREMIX 50 ML IV SCH (11:00)
[2019-05-23] MEDS: DIPHENHYDRAMINE 50MG/ML VIAL IV PRN (11:11)
[2019-05-23 12:00] VITALS: BP 143/82
[2019-05-23 12:26] VITALS: BP 143/83
[2019-05-23 16:00] VITALS: BP 131/76
[2019-05-23] MEDS ORDERED: LEVOFLOXACIN 250MG TABLET PO SCH (18:00)
[2019-05-23] MEDS ORDERED: METRONIDAZOLE 500MG TABLET PO SCH (21:00)
== END 2019-05-23 16:25 | disposition home or self-care (01) | DRG 383 ==
LOC: ER 12:45 → EDBEDREQ 16:35 → 7WST 19:18 → EDBEDREQTM 19:29 → EDBEDREQ 19:29 → ENRESERV 05-07 07:32 → 6EST 05-22 10:42
PROVIDERS: ADMIT Internal Medicine; ATTEND Internal Medicine
PROC: 0JBP0ZZ Excision of Left Lower Leg Subcutaneous Tissue and Fascia, Open Approach (ICD-10-PCS; 2019-05-08)
PROC: 02HV33Z Insertion of Infusion Device into Superior Vena Cava, Percutaneous Approach (ICD-10-PCS; 2019-05-12)
PROC: B5181ZA Fluoroscopy of Superior Vena Cava using Low Osmolar Contrast, Guidance (ICD-10-PCS; 2019-05-12)
PROC: B548ZZA Ultrasonography of Superior Vena Cava, Guidance (ICD-10-PCS; 2019-05-12)
PROC: 5A1D70Z Performance of Urinary Filtration, Intermittent, Less than 6 Hours Per Day (ICD-10-PCS; principal; 2019-05-14)
PROC: 02HV33Z Insertion of Infusion Device into Superior Vena Cava, Percutaneous Approach (ICD-10-PCS; 2019-05-14)
PROC: B548ZZA Ultrasonography of Superior Vena Cava, Guidance (ICD-10-PCS; 2019-05-14)
PROC: 5A1D70Z Performance of Urinary Filtration, Intermittent, Less than 6 Hours Per Day (ICD-10-PCS; 2019-05-16)
PROC: 5A1D70Z Performance of Urinary Filtration, Intermittent, Less than 6 Hours Per Day (ICD-10-PCS; 2019-05-17)
PROC: 0TB13ZX Excision of Left Kidney, Percutaneous Approach, Diagnostic (ICD-10-PCS; 2019-05-18)
PROC: 0JH63XZ Insertion of Tunneled Vascular Access Device into Chest Subcutaneous Tissue and Fascia, Percutaneous Approach (ICD-10-PCS; 2019-05-18)
PROC: 02HV33Z Insertion of Infusion Device into Superior Vena Cava, Percutaneous Approach (ICD-10-PCS; 2019-05-18)
PROC: B5181ZA Fluoroscopy of Superior Vena Cava using Low Osmolar Contrast, Guidance (ICD-10-PCS; 2019-05-18)
PROC: 5A1D70Z Performance of Urinary Filtration, Intermittent, Less than 6 Hours Per Day (ICD-10-PCS; 2019-05-21)
PROC: 5A1D70Z Performance of Urinary Filtration, Intermittent, Less than 6 Hours Per Day (ICD-10-PCS; 2019-05-22)
DX: L03.116 Cellulitis of left lower limb (principal); N17.0 Acute kidney failure with tubular necrosis; E87.2 Acidosis; E46 Unspecified protein-calorie malnutrition; E87.1 Hypo-osmolality and hyponatremia; R65.10 Systemic inflammatory response syndrome (SIRS) of non-infectious origin without acute organ dysfunction; N12 Tubulo-interstitial nephritis, not specified as acute or chronic; L02.416 Cutaneous abscess of left lower limb; E87.5 Hyperkalemia; D64.9 Anemia, unspecified; E11.9 Type 2 diabetes mellitus without complications; F10.10 Alcohol abuse, uncomplicated; G47.00 Insomnia, unspecified; I10 Essential (primary) hypertension; F41.9 Anxiety disorder, unspecified; Z91.19 Patient's noncompliance with other medical treatment and regimen; Z79.899 Other long term (current) drug therapy; Z68.29 Body mass index [BMI] 29.0-29.9, adult
CPT/HCPCS: 36415; 71045; 73562; 76770; 76881; 76937; 76942; 77001; 80048; 80053; 80061; 80202; 80305; 81003; 82550; 82962; 83605; 84145; 84439; 84443; 84484; 85014; 85018; 85025; 86038; 86160; 86705; 86706; 86709; 86803; 87340; 88305; 88312; 88313; 88346; 88348; 93005; 96365; 96366; 96368; 96372; 96375; 99291; C1750; C1752; C1769; J0456; J0690; J1170; J1200; J1642; J1644; J1650; J1815; J1885; J1956; J2060; J2270; J2405; J2543; J3010; J3370; J3490; J7030; J7060; J7512; Q0163